=== PATIENT | female | born 1995 | race Caucasian/White ===

== ENCOUNTER → 2020-11-11 | Outpatient (CLI) | payer BC ==
[~2020-11-11] MED LIST: BENTYL10 MG PO; BIRTH CONTROL1 EAC1 PO; HYDROCODONE BIT1 T11 PO; MACROBID100 M1 PO; NAPROSYN500 MG PO; ZITHROMAX Z PA250 MG PO
== END | disposition home or self-care (01) ==
LOC: RAD 10:22
PROVIDERS: ATTEND Orthopaedic Surgery
DX: M85.642 Other cyst of bone, left hand (principal)

== ENCOUNTER → 2020-12-03 | Day surgery (SDC) | payer BC ==
[~2020-12-03] VITALS: Ht 162.5 cm; Wt 81.6 kg
[2020-12-03 06:40] VITALS: BP 117/68
[2020-12-03 08:15] VITALS: BP 128/75
[2020-12-03 08:30] VITALS: BP 127/67
[2020-12-03 08:45] VITALS: BP 121/96
== END | disposition home or self-care (01) ==
LOC: SDC 11-30 13:15 → LAB 00:37 → SDC 07:30 → LAB 13:15
PROVIDERS: ATTEND Orthopaedic Surgery
DX: M67.432 Ganglion, left wrist (principal); J45.909 Unspecified asthma, uncomplicated; F17.210 Nicotine dependence, cigarettes, uncomplicated; Z20.822 Contact with and (suspected) exposure to COVID-19; Z79.899 Other long term (current) drug therapy